=== PATIENT | female | born 1985 | race Caucasian/White ===

== ENCOUNTER 2016-09-14 12:49 | Inpatient (IN) | payer OTHER, BC ==
[~2016-09-14] VITALS: Ht 172.7 cm; Wt 105.2 kg
[~2016-09-14 12:49] MED LIST: PROG100C PO
--- NOTE | 2016-10-01 14:23 | MH ---
cc: HANSEL ROBLES M.D. DATE OF ADMISSION: 10/02/2016 DATE OF : 1985 ADMITTING DIAGNOSIS: She is scheduled for a 12:30 on 10/02/2016 HISTORY AND PHYSICAL This 31-year-old white female 6, para 1 who previous classical section having a section 37 weeks. \ PAST MEDICAL HISTORY: The patient's past medical history is none. PAST SURGICAL HISTORY OBSTETRICAL HISTORY As above with miscarriages. GYNECOLOGIC HISTORY Negative MEDICATIONS 1. Lexapro 10 mg. 2. Hydroxyzine as needed. PHYSICAL EXAMINATION: VITAL SIGNS: Stable and afebrile. NECK: Thyroid palpably normally. HEART: Regular rate and rhythm without murmur or gallop. LUNGS: Clear to auscultation bilaterally. ABDOMEN: Soft, nontender, nondistended. Gravid uterus, 37-week size. EXTREMITIES: No edema. IMPRESSION: Impression at this time is new OB visit in a patient who is 37 weeks. PLAN: Previous classical section for repeat section. The patient aware of risks, benefits and alternatives. MD CAMMY Barahona/sofía /2:03 PM /2:17 PM
[2016-10-02] MEDS ORDERED: PROG100C PO (07:05)
[2016-10-02] MEDS ORDERED: BUSP1TAB PO (07:24)
[2016-10-02] MEDS ORDERED: ASPI-110 PO (07:24)
[2016-10-02] MEDS ORDERED: AMLO5TAB2 PO (07:24)
[2016-10-02] MEDS ORDERED: LIPI40TA PO (07:24)
[2016-10-02] MEDS ORDERED: COLA100C3 PO (07:24)
[2016-10-02] MEDS ORDERED: FURO1TAB60 PO (07:24)
[2016-10-02] MEDS ORDERED: LACTATED RINGER'S 1000 ML INJ 1,000 ML IV ONE (11:16)
[2016-10-02] MEDS ORDERED: LEXA10TA PO (11:35)
[2016-10-02] MEDS ORDERED: PREN29TA PO (11:35)
[2016-10-02] MEDS ORDERED: ASPI1TAB69 PO (11:35)
[2016-10-02] MEDS ORDERED: LACTATED RINGER'S 1000 ML INJ 1,000 ML IV SCH ×2 (12:00→21:56)
[2016-10-02 12:13] LABS: AUTOMATED NEUTROPHIL # 6.9 TH/MM3 (1.8-7.7); BASOPHIL # 0.1 TH/MM3 (0-0.2); BASOPHIL % 0.5 % (0.0-2.0); EOSINOPHIL # 0.1 TH/MM3 (0-0.4); EOSINOPHIL % 1.3 % (0.0-4.0); HEMATOCRIT 39.1 % (35.0-46.0); HEMO FLAGS DIFF FINAL; LYMPHOCYTE # 2.1 TH/MM3 (1.0-4.8); MEAN CELL VOLUME 90.3 FL (80.0-100.0); MEAN CORPUSCULAR HEMOGLOBIN 31.8 PG (27.0-34.0); MEAN CORPUSCULAR HGB CONC 35.2 % (32.0-36.0); MONO % 6.3 % (0.0-8.0); NEUT % 70.9 % (16.0-70.0); PLATELET COUNT 176 TH/MM3 (150-450); RED BLOOD COUNT 4.33 MIL/MM3 (4.00-5.30); RED CELL DISTRIBUTION WIDTH 13.5 % (11.6-17.2); WHITE BLOOD COUNT 9.8 TH/MM3 (4.0-11.0)
[2016-10-02 12:16] LABS: BACTERIA, URINE RARE /hpf; BLOOD, URINE NEG (NEG); GLUCOSE,URINE NEG (NEG); KETONE, URINE NEG (NEG); MUCUS URINE FEW /lpf (OCC); NITRITE,URINE NEG (NEG); PH, URINE 6.5 (5.0-8.5); SQUAMOUS EPITHELIAL CELL URINE 9 /hpf (0-5); URINE COLOR YELLOW (YELLW/STRAW)
[2016-10-02 12:17] LABS: COMMENT (UR) CULT NOT INDICATED; CULTURE IF INDICATED CULT NOT INDICATED
[2016-10-02] MEDS ORDERED: CITRIC ACID-SODIUM CITRATE LIQ 30 ML UDC ONE (12:18)
[2016-10-02] MEDS ORDERED: ceFAZolin 2 GM PREMIX 50 ML IV SCH (12:30)
[2016-10-02] MEDS ORDERED: OXYTOCIN 10 UNIT/ML AMP ONE ×2 (12:30→15:45)
[2016-10-02] MEDS ORDERED: CITRIC ACID-SODIUM CITRATE LIQ 30 ML UDC PO SCH (13:00)
[2016-10-02 13:13] VITALS: BP 112/78; PULSE 78
[2016-10-02] MEDS ORDERED: METOCLOPRAMIDE HCL 10 MG/2 ML VIAL IV ONE (16:15)
[2016-10-02] MEDS ORDERED: ONDANSETRON HCL 4 MG/2 ML VIAL ONE ×2 (16:38→17:08)
[2016-10-02] MEDS ORDERED: MORPHINE SULFATE PF 5 MG/10 ML VIAL ONE (16:38)
[2016-10-02] MEDS ORDERED: SIMETHICONE 80 MG CHEWABLE TAB PO PRN (17:00)
[2016-10-02] MEDS ORDERED: OXYTOCIN 30 UNITS-500ML PREMIX 500 ML IV ONE (17:00)
[2016-10-02] MEDS ORDERED: oxyCODONE/ACETAMINOPHEN 5 MG/325 MG TAB PO PRN (17:00)
[2016-10-02] MEDS ORDERED: KETOROLAC TROMETHAMINE 60 MG/2 ML (IM) VIAL IM PRN (17:00)
[2016-10-02] MEDS ORDERED: SODIUM CHLORIDE 0.9% FLUSH 5 ML FLUSH IV PRN (17:00)
--- NOTE | 2016-10-02 17:00 | PD.OB.DELI ---
Procedure Note Section Procedure Pre Op Diagnosis: (1) delivery delivered Pre Op Diagnosis previoys classical CS and isoimmunization Post Op Diagnosis: (1) delivery delivered Performed by Hipolito Edwards Procedure: Repeat Low Transverse Sec Indication for delivery: Desired elective repeat Informed consent obtained: For anesthesia, For procedure Confirmed correct: Patient, Procedure Anesthesia: Spinal Monitoring during procedure: Blood pressure monitoring Urinary catheter: Inserted using sterile technique, To dependent drainage Sterile preparation: Duraprep Position: Supine with wedge to left side Operative Features Skin Incision: Pfannenstiel Uterine Incision: Low transverse w/knife / blunt ext Membranes Ruptured: Artificially Presentation: Occiput anterior Delivery of infant: Uneventful Infant: Male, Single One Minute : 7 Five Minute : 8 Weight: 7 # 6 oz Status of : Viable Placenta delivered: Intact Medications: Antibiotics, Oxytocin Estimated blood loss: 500 Procedure tolerated: Well Maternal Condition: Stable Condition: Stable Hipolito Edwards MD Oct 02, 2016 17:00
[2016-10-02 17:04] VITALS: BP 118/64; PULSE 69; RESP 18; TEMP 98; O2SAT 98
[2016-10-02 17:26] VITALS: BP 119/74; PULSE 69; RESP 18; O2SAT 97
--- NOTE | 2016-10-02 17:30 | MP ---
cc: HANSEL EDWARDS DATE OF SURGERY 10/02/16 PROCEDURE Repeat low transverse section. PREOPERATIVE DIAGNOSIS Previous classical section 37 weeks and 2 days. 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 Isoimmunization with a 1:[address] Marbella Edwards ESTIMATED BLOOD LOSS 500 mL COMPLICATIONS None. ANESTHESIA Spinal FINDINGS Normal female pelvic anatomy, moderate scar tissue. PROCEDURE IN DETAIL After informed consent, the patient was taken to the operating room where she was placed under general anesthesia, placed in spine position left lateral tilt. Abdomen, perineum and vagina prepped, draped in normal sterile fashion. After adequate anesthesia was assured and time-out was taken, antibiotics were given. A Pfannenstiel skin incision was carried sharply old scar to the fascia. Fascia nicked in the midline. Incision was extended laterally using [place] scissors. Sharp dissection had to be completed the entire way secondary to scar tissue. Once the rectus muscle was entered, the peritoneum was free from significant adhesions. The bladder was dissected down off the lower uterine segment showed some varicosities in the lower uterine segment. Incision was made. We entered the uterine cavity. Clear fluid was noted. The incision was extended laterally using blunt traction. Hand was placed in the uterus. Using fundal pressure, the 's head delivered without difficulty. Nose and mouth suctioned well. Cord was clamped, cut and was handed to pediatrics in attendance. Cord blood was collected. Placenta was delivered manually. The uterus was exteriorized, wiped free from all remaining products of conception. Uterine incision was then closed running locking stitch of chromic suture. Good hemostasis was achieved. Uterus placed back in the abdomen noted to be hemostatic. The peritoneum was closed with Vicryl suture. The fascia was closed with Vicryl suture. The skin was closed with subcuticular stitch. Each layer was noted to be hemostatic prior to closure. The patient tolerated procedure well. The did well with 7/8 Apgars. MD CAMMY Barahona/ /5:03 PM /5:23 PM
[2016-10-02 17:42] VITALS: BP 116/68; PULSE 62; RESP 18; TEMP 97.6; O2SAT 97
[2016-10-02] MEDS ORDERED: OXYTOCIN 30 UNITS-500ML PREMIX 500 ML ONE (17:53)
[2016-10-02 17:54] VITALS: BP 116/65; PULSE 65; RESP 18; O2SAT 97
[2016-10-02] MEDS ORDERED: EPIDURAL-DO NOT ADMINISTER ANTICOAGULANTS XX PRN (18:15)
[2016-10-02] MEDS ORDERED: EPIDURAL-NALOXONE HCL 0.4 MG/ML AMP IV PRN (18:15)
[2016-10-02] MEDS ORDERED: EPIDURAL-DIPHENHYDRAMINE HCL 50 MG CAP PO PRN (18:15)
[2016-10-02] MEDS ORDERED: EPIDURAL-NO SYSTEMIC NARCOTICS XX PRN (18:15)
[2016-10-02] MEDS ORDERED: EPIDURAL-DIPHENHYDRAMINE HCL 50 MG/ML VIAL IV PUSH PRN (18:15)
[2016-10-02 18:37] VITALS: BP 111/66; PULSE 66; RESP 18; TEMP 97.8; O2SAT 98
[2016-10-02] MEDS ORDERED: SODIUM CHLORIDE 0.9% FLUSH 5 ML FLUSH IV SCH (21:00)
[2016-10-03 00:01] VITALS: BP 99/57; PULSE 78; RESP 18; TEMP 97.8
[2016-10-03] MEDS ORDERED: OXYTOCIN 30 UNITS-500ML PREMIX 500 ML IV PRN (03:00)
[2016-10-03 04:00] VITALS: BP 108/70; PULSE 75; RESP 18; TEMP 98.3
[2016-10-03] MEDS: IBUPROFEN 600 MG TAB PO PRN ×4 (04:10→22:27)
[2016-10-03] MEDS: oxyCODONE/ACETAMINOPHEN 5 MG/325 MG TAB PO PRN ×5 (04:10→20:30)
[2016-10-03] MEDS: DOCUSATE SODIUM 50 MG/SENNA 8.6 MG TAB PO PRN (04:10)
[2016-10-03 05:30] LABS: AUTOMATED NEUTROPHIL # 11.4 TH/MM3 (1.8-7.7); BASOPHIL % 0.2 % (0.0-2.0); EOSINOPHIL % 0.2 % (0.0-4.0); HEMATOCRIT 36.3 % (35.0-46.0); HEMO FLAGS DIFF FINAL; LYMPHOCYTE # 2.8 TH/MM3 (1.0-4.8); MEAN CELL VOLUME 93.2 FL (80.0-100.0); MEAN CORPUSCULAR HEMOGLOBIN 31.7 PG (27.0-34.0); MONO % 7.6 % (0.0-8.0); PLATELET COUNT 149 TH/MM3 (150-450); RED CELL DISTRIBUTION WIDTH 13.6 % (11.6-17.2); WHITE BLOOD COUNT 15.3 TH/MM3 (4.0-11.0)
[2016-10-03 07:00] VITALS: BP 108/64; PULSE 70; RESP 18; TEMP 97.7
[2016-10-03] MEDS ORDERED: DIPHTH/TETANUS/ACEL PERTUSSIS (BOOSTER) 0.5 ML VIAL/PFS IM ONE (16:00)
[2016-10-03] MEDS ORDERED: MEASLES, MUMPS, RUBELLA VACCINE 0.5 ML VIAL SQ ONE (16:00)
[2016-10-04] MEDS: oxyCODONE/ACETAMINOPHEN 5 MG/325 MG TAB PO PRN ×4 (00:16→12:47)
[2016-10-04] MEDS: IBUPROFEN 600 MG TAB PO PRN ×2 (04:23→10:43)
[2016-10-04] MEDS: DOCUSATE SODIUM 50 MG/SENNA 8.6 MG TAB PO PRN (12:56)
== END 2016-10-04 13:00 | disposition home or self-care (01) | DRG 766 ==
LOC: H2EB 10-02 10:51 → H1EA 10-02 18:03
PROVIDERS: ADMIT Obstetrics & Gynecology; ATTEND Obstetrics & Gynecology
PROC: 10D00Z0 Extraction of Products of Conception, High, Open Approach (ICD-10-PCS; principal; 2016-10-02)
DX: O34.212 Maternal care for vertical scar from previous cesarean delivery (principal); Z37.0 Single live birth; Z3A.37 37 weeks gestation of pregnancy
CPT/HCPCS: 59025; 76937; 81001; 85025; 86850; 86886; 86900; 86901; 86920; 86922; 90715; J0690; J1200; J1885; J2274; J2405; J2590; J2765; J7120